=== PATIENT | male | born 1940 | race Two or more races ===

== ENCOUNTER 2020-08-27 13:23 | Emergency (ER) | payer OTHER ==
[~2020-08-27] VITALS: Ht 170.2 cm; Wt 80.3 kg
[2020-08-27] MEDS ORDERED: LOPRESSOR HCT1 EACH (13:34)
[2020-08-27] MEDS ORDERED: JANUVIA100 MG (13:35)
[2020-08-27] MEDS ORDERED: ZESTRIL20 MG (13:35)
[2020-08-27] MEDS ORDERED: SYNTHROID50 MCG (13:36)
[2020-08-27] MEDS ORDERED: FORTAMET500 MG (13:37)
== END 2020-08-27 16:40 | disposition home or self-care (01) ==
LOC: ER 13:23
DX: R42 Dizziness and giddiness (principal); Z03.818 Encounter for observation for suspected exposure to other biological agents ruled out